=== PATIENT | male | born 1990 | race Two or more races ===

== ENCOUNTER 2018-02-27 03:38 | Emergency (ER) | payer SELFPAY ==
[~2018-02-27] VITALS: Ht 180.3 cm; Wt 131.5 kg
[2018-02-27] MEDS ORDERED: cefTRIAXone SOD 1,000 MG VL ONE (05:41)
[2018-02-27] MEDS ORDERED: cefTRIAXone W LIDOCAINE 1 GM IM IM ONE (05:45)
[2018-02-27] MEDS ORDERED: TETANUS-DIPTH-ACEL PERTUSSIS 0.5ML SYRG IM ONE (05:45)
[2018-02-27 05:50] VITALS: BP 162/96
== END 2018-02-27 06:02 | disposition home or self-care (01) ==
LOC: ER 03:41
DX: S00.83XA Contusion of other part of head, initial encounter (principal); F10.120 Alcohol abuse with intoxication, uncomplicated; E66.9 Obesity, unspecified; Z68.41 Body mass index [BMI] 40.0-44.9, adult; V49.49XA Driver injured in collision with other motor vehicles in traffic accident, initial encounter; Y93.89 Activity, other specified; Y99.8 Other external cause status; Y92.89 Other specified places as the place of occurrence of the external cause
CPT/HCPCS: 70450; 71045; 72125; 90471; 90715; 96372; 99284; J0696

== ENCOUNTER 2021-12-11 11:38 | Emergency (ER) | payer SELFPAY ==
[~2021-12-11] VITALS: Ht 177.8 cm; Wt 122.9 kg
[2021-12-11 13:21] VITALS: BP 127/89
== END 2021-12-11 15:36 | disposition home or self-care (01) ==
LOC: ER 11:38
DX: S60.212A Contusion of left wrist, initial encounter (principal); X58.XXXA Exposure to other specified factors, initial encounter; Y93.89 Activity, other specified; Y92.89 Other specified places as the place of occurrence of the external cause; Y99.8 Other external cause status
CPT/HCPCS: 73110

== ENCOUNTER 2023-04-03 21:58 | Emergency (ER) | payer MEDICAID, OTHER ==
[~2023-04-03] VITALS: Ht 177.8 cm; Wt 124.0 kg
[2023-04-04] MEDS ORDERED: HYDROcodone-ACET 5/325MG TAB PO ONE (01:15)
[2023-04-04] MEDS ORDERED: IBUP1TAB5 PO (01:25)
[2023-04-04 04:28] VITALS: BP 143/88; PULSE 102; RESP 18; TEMP 98.1; O2SAT 95
== END 2023-04-04 04:33 | disposition home or self-care (01) ==
LOC: ER 21:58
DX: S93.401A Sprain of unspecified ligament of right ankle, initial encounter (principal); S93.601A Unspecified sprain of right foot, initial encounter; Z88.6 Allergy status to analgesic agent; X50.1XXA Overexertion from prolonged static or awkward postures, initial encounter; Y93.01 Activity, walking, marching and hiking; Y92.89 Other specified places as the place of occurrence of the external cause; Y99.8 Other external cause status
CPT/HCPCS: 29515; 73610; 73630

== ENCOUNTER 2024-05-31 20:16 | Emergency (ER) | payer MEDICAID ==
[~2024-05-31] VITALS: Ht 180.3 cm; Wt 129.2 kg
[~2024-05-31 20:16] MED LIST: IBUP1TAB5 PO
--- NOTE | 2024-05-31 21:09 | ED.PDOC ---
History of Present Illness HPI Comments 34 y/o M, with a Hx of obesity, presents with c/o right-lower back and leg pain, today. Patient endorses on onset of symptoms after "pulling something," while getting off of bed following consumption of an [id number] "male- enhancement pill" and sexual intercourse, last night. Patient comments on pain w orsening, today, and elaborates on pain radiating from his back to his leg. He also reports having blurry vision, this morning, that resolved on its own iin addition to taking Tylenol with no relief or improvement of pain. He reports no additional relevant or pertinent Hx, such as previous injuries or Hx of sciatica. He denies having any weakness, numbness, tingling, or other associated symptoms or modifiers at this time. At time of assessment and arrival to ED, patient was found tachycardic at a rate of 137 and a blood pressure of 151/100. Chief Complaint: Back Pain Time Seen by MD: 20:30 Primary Care Provider: NONE Reviewed Notes: Nurses Notes, Medications, Allergies Allergies: Coded Allergies: Tramadol (Verified Allergy, Unknown, 04/03/23) Home Meds Active Scripts Ibuprofen Micronized (Ibuprofen) 600 Mg Tab, 1 TAB PO Q6HR, #20 TAB As needed for pain Prov:CRISTOFER ANAYA FRUIT PRESS OPERATOR 04/04/23 Information Source: Patient Mode of Arrival: Ambulatory Severity: Moderate Timing: Days Duration: Since onset Prehospital treatment: Other (see HPI) Past Medical History Past Medical History (Other): obesity Surgical History (Other): left-hand Sx Family History Family History: Unknown Social History Smoker: Non-Smoker Alcohol: Denies ETOH Use Drugs: Denies Drug Use Lives In: Home Musculoskeletal: reports: back pain (right lower back ), others (right leg pain ) All Other Systems: Reviewed and Negative (negative unless otherwise stated above or in HPI) Physical Exam General Appearance: No Apparent Distress, Obese HEENT: Normal ENT Inspection, Pharynx Normal, TMs Normal Neck: Full Range of Motion, Non-Tender, Normal, Normal Inspection Respiratory: Chest Non-Tender, Lungs Clear, No Accessory Muscle Use, No Respiratory Distress, Normal Breath Sounds Cardiovascular: No Edema, No JVD, No Murmur, No Gallop, Normal Peripheral Pulses, Tachycardia Breast Exam: Deferred Gastrointestinal: No Organomegaly, Non Tender, No Pulsatile Mass, Normal Bowel Sounds, Soft Genitalia: Deferred Pelvic: Deferred Rectal: Deferred Extremities: No calf tenderness, Normal capillary refill, Normal inspection, Normal range of motion, Non-tender, No pedal edema Musculoskeletal : Location: Right Extremity Location: Back (lower back) Apperance: Normal, Tenderness Neurologic: Alert, slot machine key person II-XII nml as Tested, No Motor Deficits, Normal Affect, Normal Mood, No Sensory Deficits Cerebellar Function: Normal Reflexes: Normal Skin: Dry, Normal Color, Warm Lymphatic: No Adenopathy Was a procedure done? Was a procedure done?: No Differential Dx Considerations may include: sciatic, muscle spasm, muscle sprain, dislocation, degenerative disc disorder X-Ray, Labs, Meds, VS Vital Signs Date Time Temp Pulse Resp B/P (MAP) Pulse Ox O2 Delivery O2 Flow Rate FiO2 05/31/24 22:44 90 16 126/90 (102) 05/31/24 21:33 98.4 88 16 130/90 (103) 97 98.4 05/31/24 21:33 86 16 97 Room Air* 0 21 05/31/24 21:32 130/90 05/31/24 20:33 97.8 137 22 151/100 (117) 94 Current Medications Medications (Trade) Dose Ordered Sig/Cally Route Start Time Stop Time Status Last Admin Ketorolac Tromethamine (Toradol Injection) 30 mg ONCE ONCE IM 05/31/24 21:00 05/31/24 21:01 DC 05/31/24 21:28 X-Ray, Labs, Meds, VS Comment Imaging: X-rays and CT scans were reviewed and interpreted by this provider, imaging shows no fractures and no pathological disease. Pending radiology review. Laboratory: Labs reviewed and interpreted by this provider. No significant abnormalities noted. Patient has prior medical visits reviewed. Med reconciliation performed Vital signs reviewed Time of 1ST Reevaluation: 21:00 Reevaluation 1ST: Improved Patient Education/Counseling: Diagnosis, Treatment, Need For Follow Up (Follow up with the PCP in the next 3-5 days.) Family Education/Counseling: No Family Present Departure 1 Departure Time of Disposition: 23:01 Impression: Primary Impression: Lumbar radiculopathy Additional Impression: Hypertension Qualified Codes: I15.8 - Other secondary hypertension Disposition: HOME / SELF CARE / HOMELESS Condition: Fair e-Prescriptions Metoprolol Tartrate (Metoprolol Tartrate) 25 Mg Tab 1 TAB PO DAILY, #30 TAB 1 Refill Prov: NED GOLDSTEIN 05/31/24 Cyclobenzaprine Hcl (Cyclobenzaprine Hcl) 5 Mg Tab 1 TAB PO TID, #30 TAB Prov: NED GOLDSTEIN 05/31/24 Discharged With: Self Critical Care Note Critical Care Time?: No Stability Stability form required: No Heart Score Heart Score: Heart Score Response (Comments) Value History N/A 0 EKG N/A 0 Age N/A 0 Risk Factors N/A 0 Troponin N/A 0 Total 0 I personally scribed for NED GOLDSTEIN ([email or web address]) on 05/31/24 at 21:09. Electronically submitted by Alvaro Knight ([email or web address]). NED GOLDSTEIN May 31, 2024 21:09
[2024-05-31] MEDS: KETOROLAC TROMETH 30 MG/ML 1ML VIAL IM ONE (21:28)
[2024-05-31] MEDS: METOPROLOL TARTRATE 25 MG TAB PO ONE (21:32)
[2024-05-31 21:33] VITALS: PULSE 86; RESP 16; TEMP 98.4; O2SAT 97
[2024-05-31 22:44] VITALS: BP 126/90; PULSE 90; RESP 16
[2024-05-31] MEDS ORDERED: CYCL-837 PO (23:00)
[2024-05-31] MEDS ORDERED: METO25TA5 PO (23:00)
== END 2024-05-31 23:13 | disposition home or self-care (01) ==
LOC: ER 20:16
DX: M54.16 Radiculopathy, lumbar region (principal); I10 Essential (primary) hypertension; Z79.899 Other long term (current) drug therapy; Z88.5 Allergy status to narcotic agent
CPT/HCPCS: 96372; 99283; J1885

== ENCOUNTER 2024-08-06 09:16 | Emergency (ER) | payer MEDICAID ==
[~2024-08-06] VITALS: Ht 182.9 cm; Wt 125.0 kg
[~2024-08-06 09:16] MED LIST changes: +CYCL-837 PO; +METO25TA5 PO
[2024-08-06 09:57] VITALS: BP 139/88; PULSE 115; RESP 20; TEMP 98.6; O2SAT 97
--- NOTE | 2024-08-06 10:22 | DVH ---
EXAM: XY CHEST TWO VIEWS ROUTINE CLINICAL HISTORY: COUGH COMPARISON: None TECHNIQUE: Frontal and lateral view of the chest was obtained FINDINGS: Lines and Tubes: None Lungs: No focal consolidation. Pleura: No effusion. No pneumothorax. Cardiomediastinal contours: Unremarkable Bones: No acute osseous abnormality. IMPRESSION: No acute cardiopulmonary disease.
[2024-08-06] MEDS ORDERED: AZIT500T66 PO (10:41)
[2024-08-06] MEDS ORDERED: PROM1SOL4 PO (10:41)
[2024-08-06] MEDS ORDERED: PRED20TA2 PO (10:41)
--- NOTE | 2024-08-06 10:42 | ED.PDOC ---
SOB-HPI HPI Comments A 34 YEAR OLD MALE PRESENTS TO THE ED WITH COMPLAINT OF COUGH AND SORE THROAT. PATIENT STATES HE HAS BEEN EXPERIENCING COUGH, CONGESTION, AND A SORE THROAT FOR THE PAST 3 DAYS. PATIENT DENIES SHORTNESS OF BREATH, CHEST PAIN, ABDOMINAL PAIN, NAUSEA, VOMITING, HEADACHE, OR OTHER COMPLAINTS. NO OTHER SYMPTOMS OR MODIFYING FACTORS AT THIS TIME. PATIENT IS ALERT, ORIENTED X 4, AND HAS STEADY GAIT. Chief Complaint: Cough Time Seen by MD: 09:42 Primary Care Provider: NONE Reviewed notes: Nurses Notes, Medications, Allergies Information Source: Patient Mode of Arrival: Ambulatory Severity: Moderate Timing: Days Duration: Since onset, Days Context: Spontaneous Onset PE Risk Factors: None History of: None Prehospital treatment: None Modifying Factors: Nothing Associated Signs and Symptoms: Cough, Nasal Congestion, Sore Throat If cough with SOB: Productive Past Medical History PAST MEDICAL HISTORY: Denies Surgical History: Denies all surgeries Family History Family History: Reviewed,noncontributory to illness Social History Smoker: Non-Smoker Alcohol: Denies ETOH Use Drugs: Denies Drug Use Lives In: Home Constitutional: denies: chills, diaphoresis, fatigue, fever, malaise, sweats, weakness, others EENTM: reports: nose congestion, throat pain, throat swelling; denies: blurred vision, double vision, ear bleeding, ear discharge, ear drainage, ear pain, ear ringing, eye pain, eye redness, hearing loss, mouth pain, mouth swelling, nasal discharge, nose bleeding, nose pain, photophobia, tearing, voice changes, others Respiratory: reports: cough; denies: hemoptysis, orthopnea, SOB at rest, shortness of breath, SOB with excertion, stridor, wheezing, others Cardiovascular: denies: chest pain, dizzy spells, diaphoresis, Dyspnea on exertion, edema, irregular heart beat, left arm pain, lightheadedness, palpitations, PND, syncope, others Gastrointestinal: denies: abdomen distended, abdominal pain, blood streaked bowels, constipated, diarrhea, dysphagia, difficulty swallowing, hematemesis, melena, nausea, poor appetite, poor fluid intake, rectal bleeding, rectal pain, vomiting, others Genitourinary: denies: burning, dysuria, flank pain, frequency, hematuria, incontinence, penile discharge, penile sore, pain, testicle pain, testicle swelling, urgency, others Neurological: denies: dizziness, fainting, headache, left sided numbness, left sided weakness, numbness, paresthesia, pre-existing deficit, right sided numbness, right sided weakness, seizure, speech problems, tingling, tremors, weakness, others Musculoskeletal: denies: back pain, gout, joint pain, joint swelling, muscle pain, muscle stiffness, neck pain, others Integumetry: denies: bruises, change in color, change in hair/nails, dryness, laceration, lesions, lumps, rash, wounds, others Allergic/Immunocompromised: denies: Difficulty Healing, Frequent Infections, Hives, Itching, others Hematologic/Lymphatic: denies: anemia, blood clots, easy bleeding, easy bruising, swollen glands, others Endocrine: denies: excessive hunger, excessive sweating, excessive thirst, excessive urination, flushing, intolerance to cold, intolerance to heat, unexplained weight gain, unexplained weight loss, others Psychiatric: denies: anxiety, bipolar disorder, depression, hopeless, panic disorder, schizophrenia, sleepless, suicidal, others All Other Systems: Reviewed and Negative Physical Exam General Appearance: No Apparent Distress, Normal HEENT: PERRL/EOMI, Pharyngeal Erythema (VESICLE PHARYNX WITH REDNESS AND SWELLING, MILD BLOOD SPOTS ON PHARYNX, NO EXUDATES AND BLEEDING. ), TMs Normal Neck: Full Range of Motion, Non-Tender, Normal, Normal Inspection Respiratory: Chest Non-Tender, Expiration, No Accessory Muscle Use, No Respiratory Distress, Rhonchi Cardiovascular: No Edema, No JVD, No Murmur, No Gallop, Normal Peripheral Pulses, Regular Rate/Rhythm Breast Exam: Deferred Gastrointestinal: No Organomegaly, Non Tender, No Pulsatile Mass, Normal Bowel Sounds, Soft Genitalia: Deferred Pelvic: Deferred Rectal: Deferred Extremities: No calf tenderness, Normal capillary refill, Normal inspection, Normal range of motion, Non-tender, No pedal edema Musculoskeletal : Apperance: Normal Neurologic: Alert, corporate trainer II-XII nml as Tested, No Motor Deficits, Normal Affect, Normal Mood, No Sensory Deficits Cerebellar Function: Normal Reflexes: Normal Skin: Dry, Normal Color, Warm Peripheral Pulses: 2+ carotid (R), 2+ carotid (L) Lymphatic: No Adenopathy Was a procedure done? Was a procedure done?: No Differential Dx Differential Diagnosis: Bronchitis, Pneumonia, Sinusitis, Allergic Rhinitis, Otitis Media, Pharyngitis, URI X-Ray, Labs, Meds, VS Vital Signs Date Time Temp Pulse Resp B/P (MAP) Pulse Ox O2 Delivery O2 Flow Rate FiO2 08/06/24 09:57 98.6 115 20 139/88 (105) 97 98.6 08/06/24 09:57 115 20 97 Room Air 08/06/24 09:24 20 97 Room Air* 0 21 08/06/24 09:24 98.6 115 20 139/88 (105) 97 EXAM: XY CHEST TWO VIEWS ROUTINE CLINICAL HISTORY: COUGH COMPARISON: None TECHNIQUE: Frontal and lateral view of the chest was obtained FINDINGS: Lines and Tubes: None Lungs: No focal consolidation. Pleura: No effusion. No pneumothorax. Cardiomediastinal contours: Unremarkable Bones: No acute osseous abnormality. IMPRESSION: No acute cardiopulmonary disease. ATED BY: ERIK RÍOS MD DICTATED DATE/TIME: 08/06/24 1021 SIGNED BY: ERIK RÍOS MD SIGNED DATE/TIME: 08/06/24 1021 CC: X-Ray, Labs, Meds, VS Comment EXTERNAL MEDICAL RECORDS REVIEWED: [NONE] INDEPENDENT HISTORIANS: [NONE] SOCIAL DETERMINANTS OF HEALTH: [NONE] LABS ORDERED: NONE REVIEWED AND INTERPRETED RESULTS: NONE IMAGING ORDERED: XR CHEST TREATMENTS ORDERED: NONE PROCEDURES PERFORMED: NONE CRITICAL CARE TIME: NONE I HAVE DISCUSSED THE PATIENT WITH THE ATTENDING PHYSICIAN DR. ACEVEDO AND HE AGREES WITH THE PATIENT'S PLAN OF CARE AND DISPOSITION. BASED ON HISTORY OF PRESENT ILLNESS, AND PHYSICAL EXAM, PATIENT WILL BE DISCHARGED HOME. DISCUSSED PLAN FOR DISCHARGE HOME WITH RX [AZITHROMYCIN, PREDNISONE, AND PHENERGAN DM]. MEDICATION WARNINGS GIVEN. SHARED DECISION MAKING: PATIENT INSTRUCTED TO FOLLOW UP WITH PRIMARY CARE PROVIDER IN 1-2 DAYS FOR RE-EVALUATION OF SYMPTOMS. PATIENT VERBALIZES UNDERSTANDING TO RETURN TO ED FOR NEW OR WORSENING SYMPTOMS OR IF FOLLOW UP WITH PCP CANNOT BE OBTAINED. PATIENT FEELS COMFORTABLE GOING HOME AT THIS TIME. ALL QUESTIONS ADDRESSED AT TIME OF DISCHARGE. Images Reviewed?: Images reviewed and evaluated by me Time of 1ST Reevaluation: 10:45 Reevaluation 1ST: Improved Patient Education/Counseling: Diagnosis, Treatment, Need For Follow Up Family Education/Counseling: Diagnosis, Treatment, Need For Follow Up Medical Screening: No EMC Exist At This Time Departure 1 Departure Time of Disposition: 10:45 Impression: Primary Impression: Acute pharyngitis Qualified Codes: J02.9 - Acute pharyngitis, unspecified Additional Impression: Acute bronchitis Qualified Codes: J20.9 - Acute bronchitis, unspecified Disposition: HOME / SELF CARE / HOMELESS Condition: Stable Additional Instructions: FOLLOW-UP WITH PCP IN 1 TO 2 DAYS. TAKE MEDICATIONS PRESCRIBED. RETURN TO ED FOR ANY NEW OR WORSENING SYMPTOMS. e-Prescriptions Prednisone (Prednisone) 20 Mg Tab 60 MG PO DAILY, #15 TAB Prov: HEIDI VASQUEZ 08/06/24 Promethazine-Dm (Promethazine Dm 6.25-15 mg/5Ml) 1 Miryam Miryam 5 ML PO TID, #180 ML Prov: HEIDI VASQUEZ 08/06/24 Azithromycin (Azithromycin) 500 Mg Tab 1 TAB PO DAILY, #5 TAB Prov: HEIDI VASQUEZ 08/06/24 Discharged With: Self Critical Care Note Critical Care Time?: No Stability Stability form required: No Heart Score Heart Score: Heart Score Response (Comments) Value History N/A 0 EKG N/A 0 Age N/A 0 Risk Factors N/A 0 Troponin N/A 0 Total 0 I personally scribed for HEIDI VASQUEZ ([email or web address]) on 08/06/24 at 10:42. Electronically submitted by Oracio Laird ([email or web address]). HEIDI VASQUEZ Aug 06, 2024 10:42
== END 2024-08-06 10:46 | disposition home or self-care (01) ==
LOC: ER 09:16
DX: J20.9 Acute bronchitis, unspecified (principal); J02.9 Acute pharyngitis, unspecified
CPT/HCPCS: 71046

== ENCOUNTER 2025-02-19 09:58 | Emergency (ER) | payer MEDICAID ==
[~2025-02-19] VITALS: Ht 167.6 cm; Wt 90.1 kg
[~2025-02-19 09:58] MED LIST changes: +AZIT500T66 PO; +PRED20TA2 PO; +PROM1SOL4 PO
[2025-02-19 10:50] VITALS: BP 130/83; PULSE 100; RESP 18; TEMP 97.7; O2SAT 97
[2025-02-19] MEDS ORDERED: IBUP-1456 PO (10:54)
--- NOTE | 2025-02-19 10:54 | ED.PDOC ---
Musculoskeletal HPI Comments A 35 YEAR OLD MALE PRESENTS TO THE ED WITH COMPLAINT OF LEFT KNEE PAIN . PATIENT STATES HE WAS [place] [employer] EARLIER THIS A.M. AND STATES WHILE IN THE BATHROOM HE SLIPPED ON WATER AND HIT HIS LEFT KNEE ON THE STALL. PATIENT STATES SINCE HE HAS BEEN HAVING PAIN TO THE LEFT KNEE AND PAIN WHILE ATTEMPTING TO AMBULATE. PATIENT DENIES FEVER, CHILLS, SHORTNESS OF BREATH, CHEST PAIN, ABDOMINAL PAIN, NAUSEA, VOMITING, HEADACHE, OR OTHER COMPLAINTS. NO OTHER SYMPTOMS OR MODIFYING FACTORS AT THIS TIME. PATIENT IS ALERT, ORIENTED X 4, AND HAS STEADY GAIT. Chief Complaint: Lower Extremity Time Seen by MD: 10:51 Primary Care Provider: NONE Reviewed Notes: Nurses Notes, Medications, Allergies Allergies: Coded Allergies: Tramadol (Verified Allergy, Unknown, 04/03/23) Home Meds Active Scripts Ibuprofen (Ibuprofen) 800 Mg Tab, 1 TAB PO TID, #30 TAB Prov:HEIDI VASQUEZ 02/19/25 Prednisone (Prednisone) 20 Mg Tab, 60 MG PO DAILY, #15 TAB Prov:HEIDI VASQUEZ 08/06/24 Promethazine-Dm (Promethazine Dm 6.25-15 mg/5Ml) 1 Miryam Miryam, 5 ML PO TID, #180 ML Prov:HEIDI VASQUEZ 08/06/24 Azithromycin (Azithromycin) 500 Mg Tab, 1 TAB PO DAILY, #5 TAB Prov:HEIDI VASQUEZ 08/06/24 Metoprolol Tartrate (Metoprolol Tartrate) 25 Mg Tab, 1 TAB PO DAILY, #30 TAB 1 Refill Prov:NED GOLDSTEIN 05/31/24 Cyclobenzaprine Hcl (Cyclobenzaprine Hcl) 5 Mg Tab, 1 TAB PO TID, #30 TAB Prov:NED GOLDSTEIN 05/31/24 Ibuprofen Micronized (Ibuprofen) 600 Mg Tab, 1 TAB PO Q6HR, #20 TAB As needed for pain Prov:CRISTOFER ANAYA NP 04/04/23 Information Source: Patient Mode of Arrival: EMS Location: Left Extremity Location: Knee Timing: Hours Prehospital treatment: None Severity: Moderate Able to Move Extremity: Yes Bear Weight: Limited Pain: Moderate Hand Dominance: Right Mechanism: Hyperextension Circumstances: Fall Symptoms: Pain DVT Risk Factors: NONE Last Tetanus: UTD Associated signs and symptoms: Knee pain Past Medical History PAST MEDICAL HISTORY: Denies Surgical History: Denies all surgeries Family History Family History: Reviewed,noncontributory to illness Social History Smoker: Non-Smoker Alcohol: Denies ETOH Use Drugs: Denies Drug Use Lives In: Home Constitutional: denies: chills, diaphoresis, fatigue, fever, malaise, sweats, weakness, others EENTM: denies: blurred vision, double vision, ear bleeding, ear discharge, ear drainage, ear pain, ear ringing, eye pain, eye redness, hearing loss, mouth pain, mouth swelling, nasal discharge, nose bleeding, nose congestion, nose pain, photophobia, tearing, throat pain, throat swelling, voice changes, others Respiratory: denies: cough, hemoptysis, orthopnea, SOB at rest, shortness of breath, SOB with excertion, stridor, wheezing, others Cardiovascular: denies: chest pain, dizzy spells, diaphoresis, Dyspnea on exertion, edema, irregular heart beat, left arm pain, lightheadedness, palpitations, PND, syncope, others Gastrointestinal: denies: abdomen distended, abdominal pain, blood streaked bowels, constipated, diarrhea, dysphagia, difficulty swallowing, hematemesis, melena, nausea, poor appetite, poor fluid intake, rectal bleeding, rectal pain, vomiting, others Genitourinary: denies: burning, dysuria, flank pain, frequency, hematuria, incontinence, penile discharge, penile sore, pain, testicle pain, testicle swelling, urgency, others Neurological: denies: dizziness, fainting, headache, left sided numbness, left sided weakness, numbness, paresthesia, pre-existing deficit, right sided numbness, right sided weakness, seizure, speech problems, tingling, tremors, weakness, others Musculoskeletal: reports: joint pain, joint swelling; denies: back pain, gout, muscle pain, muscle stiffness, neck pain, others Integumetry: denies: bruises, change in color, change in hair/nails, dryness, laceration, lesions, lumps, rash, wounds, others Allergic/Immunocompromised: denies: Difficulty Healing, Frequent Infections, Hives, Itching, others Hematologic/Lymphatic: denies: anemia, blood clots, easy bleeding, easy bruising, swollen glands, others Endocrine: denies: excessive hunger, excessive sweating, excessive thirst, excessive urination, flushing, intolerance to cold, intolerance to heat, unexplained weight gain, unexplained weight loss, others Psychiatric: denies: anxiety, bipolar disorder, depression, hopeless, panic disorder, schizophrenia, sleepless, suicidal, others All Other Systems: Reviewed and Negative (SEE HPI) Physical Exam General Appearance: No Apparent Distress, Obese HEENT: Normal ENT Inspection, PERRL/EOMI, Pharynx Normal, TMs Normal Neck: Full Range of Motion, Non-Tender, Normal, Normal Inspection Respiratory: Chest Non-Tender, Lungs Clear, No Accessory Muscle Use, No Respiratory Distress, Normal Breath Sounds Cardiovascular: No Edema, No JVD, No Murmur, No Gallop, Normal Peripheral Pulses, Regular Rate/Rhythm Breast Exam: Deferred Gastrointestinal: No Organomegaly, Non Tender, No Pulsatile Mass, Normal Bowel Sounds, Soft Genitalia: Deferred Pelvic: Deferred Rectal: Deferred Extremities: Decreased range of motion, No calf tenderness, Normal capillary refill, No pedal edema, Tender (ON LEFT KNEE, NO REDNESS, SWELLING AND DEFORMITY. ) Musculoskeletal : Apperance: Normal Neurologic: Alert, flexographic press plate setter II-XII nml as Tested, No Motor Deficits, Normal Affect, Normal Mood, No Sensory Deficits Cerebellar Function: Normal Reflexes: Normal Skin: Dry, Normal Color, Warm Peripheral Pulses: 2+ carotid (R), 2+ carotid (L), 2+ dorsalis pedis (R), 2+ dorsalis pedis (L) Lymphatic: No Adenopathy Was a procedure done? Was a procedure done?: No Differential Diagnosis EXT Differential Diagnosis: Fracture, Sprain, Dislocation, Contusion, Strain, Bursitis X-Ray, Labs, Meds, VS Vital Signs Date Time Temp Pulse Resp B/P (MAP) Pulse Ox O2 Delivery O2 Flow Rate FiO2 02/19/25 10:50 100 18 97 Room Air* 0 21 02/19/25 10:50 97.7 100 18 130/83 (99) 97 97.7 02/19/25 09:58 97.7 101 15 138/83 97 97.7 Current Medications Medications (Trade) Dose Ordered Sig/Cally Route Start Time Stop Time Status Last Admin Acetaminophen/ Hydrocodone Bitart ([place] 10/325MG Tab) 1 tab ONCE ONCE PO 02/19/25 11:00 02/19/25 11:01 DC 02/19/25 11:11 [place] [address] Ph: [phone] DIAGNOSTIC IMAGING Diagnostic Imaging Report : [id number] Signed PATIENT: EDUARDO KAISER MACCT: [id number] UNIT: [id number] : 1990 LOC: ER ROOM / BED: / AGE / SEX: 35 / M ADM STATUS: REG ER SERVICE 1026 ORDERING PHYSICIAN: HEIDI VASQUEZ PROCEDURE(s): LKNE3 - L KNEE 3V XRAY REASON: FALL ORDER NUMBER(s): [id number], ACCESSION NUMBER(s): [id number] CLINICAL INFORMATION: 35 years old, Male; FALL. TECHNIQUE: 3 views of the left knee were obtained. COMPARISON: None FINDINGS: No acute fracture or dislocation. No significant arthropathy. No focal soft tissue swelling. No significant joint effusion. IMPRESSION: No evidence of acute bony abnormality. ATED BY: SHAWN QUIÑONES DO DICTATED DATE/TIME: 02/19/25 110 SIGNED BY: SHAWN QUIÑONES DO SIGNED DATE/TIME: 02/19/25 110 CC: X-Ray, Labs, Meds, VS Comment COURSE: EXTERNAL MEDICAL RECORDS REVIEWED: [NONE] INDEPENDENT HISTORIANS: [NONE] SOCIAL DETERMINANTS OF HEALTH: [NONE] LABS ORDERED: NONE REVIEWED AND INTERPRETED RESULTS: NONE IMAGING ORDERED: LEFT KNEE X-RAY TREATMENTS ORDERED: NORCO PROCEDURES PERFORMED: NONE CRITICAL CARE TIME: NONE I HAVE DISCUSSED THE PATIENT WITH THE ATTENDING PHYSICIAN, DR INMAN /HE AGREES WITH THE PATIENT'S PLAN OF CARE AND DISPOSITION. BASED ON HISTORY OF PRESENT ILLNESS, AND PHYSICAL EXAM, PATIENT WILL BE DISCHARGED HOME. DISCUSSED PLAN FOR DISCHARGE HOME WITH RX:MOTRIN 800MG. MEDICATION WARNINGS GIVEN. SHARED DECISION MAKING: DISCUSSED WITH PATIENT THAT THEIR WORKUP WAS NORMAL. PATIENT INSTRUCTED TO FOLLOW UP WITH PRIMARY CARE PROVIDER IN 1-2 DAYS FOR RE- EVALUATION OF SYMPTOMS. PATIENT VERBALIZES UNDERSTANDING TO RETURN TO ED FOR NEW OR WORSENING SYMPTOMS OR IF FOLLOW UP WITH PCP CANNOT BE OBTAINED. PATIENT FEELS COMFORTABLE GOING HOME AT THIS TIME. ALL QUESTIONS ADDRESSED AT TIME OF DISCHARGE. Time of 1ST Reevaluation: 11:30 Reevaluation 1ST: Improved Patient Education/Counseling: Diagnosis, Treatment, Need For Follow Up Family Education/Counseling: Diagnosis, Treatment, Need For Follow Up, No Trish novak Present Medical Screening: No EMC Exist At This Time Departure 1 Departure Time of Disposition: 11:30 Impression: Primary Impression: Sprain of left knee Qualified Codes: S83.8X2A - Sprain of other specified parts of left knee, initial encounter Disposition: HOME / SELF CARE / HOMELESS Condition: Stable Additional Instructions: F/U PCP IN 2 DAYS RECHECK. IF CONDITION BECOME WORSE, RETURN TO ED [facility]. e-Prescriptions Ibuprofen (Ibuprofen) 800 Mg Tab 1 TAB PO TID, #30 TAB Prov: HEIDI VASQUEZ 02/19/25 Discharged With: Self, Spouse Critical Care Note Critical Care Time?: No Stability Stability form required: No Heart Score Heart Score: Heart Score Response (Comments) Value History N/A 0 EKG N/A 0 Age N/A 0 Risk Factors N/A 0 Troponin N/A 0 Total 0 I personally scribed for HEIDI VASQUEZ ([email or web address]) on 02/19/25 at 10:54. Electronically submitted by Dani Salomon ([email or web address]). I personally scribed for HEIDI VASQUEZ ([email or web address]) on 02/19/25 at 11:06. Electronically submitted by Dani Salomon ([email or web address]). I personally scribed for HEIDI VASQUEZ ([email or web address]) on 02/19/25 at 11:20. Electronically submitted by Dani Salomon ([email or web address]). HEIDI VASQUEZ Feb 19, 2025 10:54
--- NOTE | 2025-02-19 11:08 | DVH ---
CLINICAL INFORMATION: 35 years old, Male; FALL. TECHNIQUE: 3 views of the left knee were obtained. COMPARISON: None FINDINGS: No acute fracture or dislocation. No significant arthropathy. No focal soft tissue swelling . No significant joint effusion. IMPRESSION: No evidence of acute bony abnormality.
[2025-02-19] MEDS: HYDROcodone-ACET 10/325MG TAB PO ONE (11:11)
== END 2025-02-19 11:27 | disposition home or self-care (01) ==
LOC: EDBD 09:58 → ER 09:58 → EDUNIT# 09:58 → ER 11:27
DX: S83.8X2A Sprain of other specified parts of left knee, initial encounter (principal); Z79.899 Other long term (current) drug therapy; Z88.5 Allergy status to narcotic agent; W01.0XXA Fall on same level from slipping, tripping and stumbling without subsequent striking against object, initial encounter; Y93.89 Activity, other specified; Y92.091 Bathroom in other non-institutional residence as the place of occurrence of the external cause; Y99.8 Other external cause status
CPT/HCPCS: 73562